=== PATIENT | male | born 1940 | race Two or more races ===

== ENCOUNTER 2023-05-17 14:39 | Outpatient (CLI) | payer OTHER ==
[2023-05-18] MEDS ORDERED: URSO250 MG PO (11:37)
[2023-05-18] MEDS ORDERED: PEPCID AC20 MG (11:37)
[2023-05-18] MEDS ORDERED: IMURAN50 MG (11:38)
[2023-05-18] MEDS ORDERED: IRON325 MG (11:38)
[2023-05-18] MEDS ORDERED: PROTONIX40 M1 PO (11:38)
[2023-05-18] MEDS ORDERED: CENTRUM SILVER1 EAC4 PO (11:39)
[2023-05-18] MEDS ORDERED: CARAFATE1 GM (11:39)
[2023-05-18] MEDS ORDERED: VITAMIN C1000 MG PO (11:41)
[2023-05-18] MEDS ORDERED: VITAMIN D325 MC2 PO (11:41)
== END 2023-05-17 15:00 | disposition home or self-care (01) ==
LOC: RAD 14:39
PROVIDERS: ATTEND Orthopaedic Surgery
DX: M25.521 Pain in right elbow (principal)

== ENCOUNTER 2023-05-18 09:44 | Outpatient (CLI) | payer OTHER ==
[2023-05-18] MEDS ORDERED: URSO250 MG PO (11:37)
[2023-05-18] MEDS ORDERED: PEPCID AC20 MG (11:37)
[2023-05-18] MEDS ORDERED: PROTONIX40 M1 PO (11:38)
[2023-05-18] MEDS ORDERED: IRON325 MG (11:38)
[2023-05-18] MEDS ORDERED: IMURAN50 MG (11:38)
[2023-05-18] MEDS ORDERED: CARAFATE1 GM (11:39)
[2023-05-18] MEDS ORDERED: CENTRUM SILVER1 EAC4 PO (11:39)
[2023-05-18] MEDS ORDERED: VITAMIN D325 MC2 PO (11:41)
[2023-05-18] MEDS ORDERED: VITAMIN C1000 MG PO (11:41)
== END 2023-05-18 09:48 | disposition home or self-care (01) ==
LOC: LAB 09:44
PROVIDERS: ATTEND Orthopaedic Surgery
DX: N39.0 Urinary tract infection, site not specified (principal); Z22.322 Carrier or suspected carrier of Methicillin resistant Staphylococcus aureus

== ENCOUNTER 2023-05-18 11:23 | Inpatient (IN) | payer OTHER ==
[~2023-05-18] VITALS: Ht 162.6 cm; Wt 62.6 kg
[2023-05-18] MEDS ORDERED: URSO250 MG PO (11:37)
[2023-05-18] MEDS ORDERED: PEPCID AC20 MG (11:37)
[2023-05-18] MEDS ORDERED: IMURAN50 MG (11:38)
[2023-05-18] MEDS ORDERED: PROTONIX40 M1 PO (11:38)
[2023-05-18] MEDS ORDERED: IRON325 MG (11:38)
[2023-05-18] MEDS ORDERED: CARAFATE1 GM (11:39)
[2023-05-18] MEDS ORDERED: CENTRUM SILVER1 EAC4 PO (11:39)
[2023-05-18] MEDS ORDERED: VITAMIN C1000 MG PO (11:41)
[2023-05-18] MEDS ORDERED: VITAMIN D325 MC2 PO (11:41)
== END 2023-05-23 17:35 | disposition home or self-care (01) | DRG 501 ==
LOC: ER 11:23 → MEDI 17:22
PROVIDERS: ADMIT Specialist; ATTEND Specialist
PROC: 0KQ70ZZ Repair Right Upper Arm Muscle, Open Approach (ICD-10-PCS; principal; 2023-05-18)
PROC: 0MB30ZZ Excision of Right Elbow Bursa and Ligament, Open Approach (ICD-10-PCS; 2023-05-18)
PROC: 02HV33Z Insertion of Infusion Device into Superior Vena Cava, Percutaneous Approach (ICD-10-PCS; 2023-05-20)
DX: M70.21 Olecranon bursitis, right elbow (principal); L03.113 Cellulitis of right upper limb; M06.221 Rheumatoid bursitis, right elbow

== ENCOUNTER 2023-06-26 07:09 | Outpatient (CLI) | payer OTHER ==
[~2023-06-26 07:09] MED LIST: CARAFATE1 GM; CENTRUM SILVER1 EAC4 PO; IMURAN50 MG; IRON325 MG; PEPCID AC20 MG; PROTONIX40 M1 PO; URSO250 MG PO; VITAMIN C1000 MG PO; VITAMIN D325 MC2 PO
== END 2023-06-26 07:15 | disposition home or self-care (01) ==
LOC: NUCLEAR 07:09
PROVIDERS: ATTEND Internal Medicine
DX: I25.118 Atherosclerotic heart disease of native coronary artery with other forms of angina pectoris (principal)
CPT/HCPCS: 78452; 93017; A9500

== ENCOUNTER → 2023-11-22 08:35 | Outpatient (CLI) | payer OTHER | END | disposition home or self-care (01) | LOC: LAB 08:35 | PROVIDERS: ATTEND Orthopaedic Surgery | DX: E56.1 Deficiency of vitamin K (principal) ==